=== PATIENT | female | born 1975 | race Caucasian/White ===

== ENCOUNTER → 2017-12-01 | Outpatient (CLI) | payer BC ==
--- NOTE | 2017-12-05 09:42 | MM ---
Reason for exam: screening (asymptomatic). Last mammogram was performed 4 years and 8 months ago. History: Took hormonal contraceptives for 6 years. Physical Findings: A clinical breast exam by your physician is recommended on an annual basis and results should be correlated with mammographic findings. MG 3D Screening Mammo W/Cad Bilateral CC and MLO view(s) were taken. Prior study comparison: March 29, 2013, bilateral digital screening mammo w/CAD. There are scattered fibroglandular densities. Finding: There is a lobular, equal, indistinct mass in the upper quadrant, middle position of the left breast MLO view. New finding since March 29, 2013. ASSESSMENT: Incomplete: need additional imaging evaluation, BI-RAD 0 RECOMMENDATION: Special view mammogram of the left breast. If lesion persists on supplemental views, image directed ultrasound is recommended. [facility] will attempt to contact patient to return for supplemental views and ultrasound if indicated.
== END | disposition home or self-care (01) ==
LOC: RADMAMWWP 12:38
PROVIDERS: ATTEND Obstetrics & Gynecology
DX: Z12.31 Encounter for screening mammogram for malignant neoplasm of breast (principal)
CPT/HCPCS: 77063; 77067

== ENCOUNTER → 2017-12-08 | Outpatient (CLI) | payer BC ==
--- NOTE | 2017-12-11 07:39 | MM ---
Reason for exam: additional evaluation requested from abnormal screening. Last mammogram was performed less than 1 month ago. History: Took hormonal contraceptives for 6 years. Physical Findings: Nurse did not find any significant physical abnormalities on exam. MG 3D Work Up W/Cad LT ML and spot compression MLO view(s) were taken of the left breast. Prior study comparison: December 01, 2017, bilateral MG 3d screening mammo w/cad. There are scattered fibroglandular densities. The superior asymmetry disperses on additional views. These results were verbally communicated with the patient and result sheet given to the patient on 12/08/17. ASSESSMENT: Negative, BI-RAD 1 RECOMMENDATION: Return to routine screening mammogram schedule for both breasts.
== END | disposition home or self-care (01) ==
LOC: RADMAMWWP 13:34
PROVIDERS: ATTEND Obstetrics & Gynecology
DX: R92.8 Other abnormal and inconclusive findings on diagnostic imaging of breast (principal)
CPT/HCPCS: 77065; G0279

== ENCOUNTER → 2019-01-11 | Outpatient (CLI) | payer BC ==
--- NOTE | 2019-01-15 08:35 | MM ---
Reason for exam: screening (asymptomatic). Last mammogram was performed 1 year and 1 month ago. History: Took hormonal contraceptives for 6 years. Physical Findings: A clinical breast exam by your physician is recommended on an annual basis and results should be correlated with mammographic findings. MG 3D Screening Mammo W/Cad Bilateral CC and MLO view(s) were taken. Prior study comparison: December 08, 2017, left breast MG 3d work up w/cad LT. December 01, 2017, bilateral MG 3d screening mammo w/cad. There are scattered fibroglandular densities. No significant changes when compared with prior studies. ASSESSMENT: Benign, BI-RAD 2 RECOMMENDATION: Routine screening mammogram of both breasts in 1 year.
== END | disposition home or self-care (01) ==
LOC: RADMAMWWP 09:10
PROVIDERS: ATTEND Obstetrics & Gynecology
DX: Z12.31 Encounter for screening mammogram for malignant neoplasm of breast (principal)
CPT/HCPCS: 77063; 77067

== ENCOUNTER 2019-07-05 09:50 | Day surgery (SDC) | payer BC ==
[2019-07-03 18:29] VITALS: BMI 30.7
[~2019-07-05 09:50] MED LIST: LACTATED RINGERS 1,000 ML IV SCH
[2019-07-05 10:09] VITALS: RESP 16; TEMP 98.9
[2019-07-05] MEDS ORDERED: LIDOCAINE 1% 20 ML VIAL (10MG/ML) FOR IV START INTRADERMA ONE (10:30)
[2019-07-05] MEDS ORDERED: PROPOFOL 10 MG/ML 20 ML VIAL IV ONE (10:32)
[2019-07-05] MEDS ORDERED: MIDAZOLAM 2 MG/2 ML VIAL ONE (10:32)
--- NOTE | 2019-07-05 10:35 | P.GSHP ---
History of Present Illness H&P Date: 07/05/19 Chief Complaint: GERD This a 44-year-old female who presents today for EGD. Patient had complaints of GERD. Past Medical History Past Medical History: GERD/Reflux, Hyperlipidemia, Hypertension Additional Past Medical History / Comment(s): FATHER HAS MORGAN'S ESOPHAGUS, MOTHER HAS HIATAL HERNIA. ALLERGIES. History of Any Multi-Drug Resistant Organisms: None Reported Past Surgical History: Cholecystectomy Additional Past Surgical History / Comment(s): INFERTILITY PROC. COLONOSCOPY Past Anesthesia/Blood Transfusion Reactions: No Reported Reaction Smoking Status: Never smoker - Past Family History Father Family Medical History: Cancer Additional Family Medical History / Comment(s): KIDNEY CA. MORGAN'S ESOPHAGUS W/ DYSPLASIA Medications and Allergies Home Medications Medication Instructions Recorded Confirmed Type Atorvastatin Calcium [Lipitor] 20 mg PO MOWEFR 05/03/15 07/05/19 History Acetaminophen [Tylenol Extra 500 - 1,000 mg PO Q6H PRN 07/03/19 07/05/19 History Strength] Fluticasone Nasal [place] [Flonase 1 - 2 spray EA NOSTRIL DAILY PRN 07/03/19 07/05/19 History Nasal [place]] Lisinopril 30 mg PO DAILY 07/03/19 07/05/19 History Loratadine [Claritin] 10 mg PO DAILY PRN 07/03/19 07/05/19 History Pantoprazole Sodium 40 mg PO DAILY 07/03/19 07/05/19 History Allergies Allergy/AdvReac Type Severity Reaction Status Date / Time amoxicillin trihydrate Allergy Rash/Hives Verified 07/05/19 10:11 [From Augmentin] potassium clavulanate Allergy Rash/Hives Verified 07/05/19 10:11 [From Augmentin] Surgical - Exam Vital Signs Temp Pulse Resp BP Pulse Ox 98.9 F 86 16 149/95 96 07/05/19 10:08 07/05/19 10:08 07/05/19 10:08 07/05/19 10:08 07/05/19 10:08 - General well developed, well nourished, no distress - Eyes PERRL - ENT normal pinna - Neck no masses - Respiratory normal expansion - Cardiovascular Rhythm: regular - Abdomen Abdomen: soft, non tender Assessment and Plan Assessment: GERD. We'll perform EGD.
--- NOTE | 2019-07-05 10:45 | P.OP ---
Date of Procedure: 07/05/19 Preoperative Diagnosis: GERD Postoperative Diagnosis: Mild antral gastritis Small sliding hiatal hernia Minimal esophagitis Procedure(s) Performed: EGD Anesthesia: MAC Surgeon: Hossein Juarez Pathology: other (Antral, esophagus) Condition: stable Disposition: PACU Description of Procedure: The patient's placed on the endoscopy table in the lateral position. She received IV sedation. The gastroscope placed oropharynx passed in the esophagus and into the stomach. Scope was then placed through the pylorus. The first and second portion of duodenum appeared normal. Scope was then brought back the antrum this. Mildly inflamed. A biopsy was performed. The scope was unretroflexed and remainder of the stomach appeared normal. There is a very small sliding hiatal hernia. GE junction was at 40 cm. The distal esophagus appeared minimally inflamed and a random biopsies performed. The proximal esophagus appeared normal. Scope was withdrawn for patient.
[2019-07-05 10:55] VITALS: BP 117/83; PULSE 78
== END 2019-07-05 11:16 | disposition home or self-care (01) ==
LOC: ORWHC2ENDO 09:50
PROVIDERS: ATTEND Surgery
DX: K44.9 Diaphragmatic hernia without obstruction or gangrene (principal); K29.50 Unspecified chronic gastritis without bleeding; K31.89 Other diseases of stomach and duodenum; K21.0 Gastro-esophageal reflux disease with esophagitis; E78.5 Hyperlipidemia, unspecified; I10 Essential (primary) hypertension; Z83.79 Family history of other diseases of the digestive system; Z90.49 Acquired absence of other specified parts of digestive tract; Z80.51 Family history of malignant neoplasm of kidney; Z79.899 Other long term (current) drug therapy; Z88.0 Allergy status to penicillin
CPT/HCPCS: 81025; 88305; 43239; J2250; J2704

== ENCOUNTER → 2020-05-06 | Outpatient (CLI) | payer BC ==
--- NOTE | 2020-05-07 13:16 | MM ---
Reason for exam: screening (asymptomatic). Last mammogram was performed 1 year and 4 months ago. History: Patient is nulliparous. Took hormonal contraceptives for 6 years. Physical Findings: A clinical breast exam by your physician is recommended on an annual basis and results should be correlated with mammographic findings. MG 3D Screening Mammo W/Cad Bilateral CC and MLO view(s) were taken. Prior study comparison: January 11, 2019, bilateral MG 3d screening mammo w/cad. December 08, 2017, left breast MG 3d work up w/cad LT. There are scattered fibroglandular densities. No significant changes when compared with prior studies. ASSESSMENT: Negative, BI-RAD 1 RECOMMENDATION: Routine screening mammogram of both breasts in 1 year.
== END | disposition home or self-care (01) ==
LOC: RADMAMWWP 07:29
PROVIDERS: ATTEND Obstetrics & Gynecology
DX: Z12.31 Encounter for screening mammogram for malignant neoplasm of breast (principal)
CPT/HCPCS: 77063; 77067

== ENCOUNTER → 2021-10-21 | Outpatient (CLI) | payer BC ==
[2021-10-21 10:48] LABS: HGB 13.3 gm/dL (11.4-16.0); MCH 29.2 pg (25.0-35.0); MCHC 32.4 g/dL (31.0-37.0); MCV 90.2 fL (80.0-100.0); Mean Platelet Volume 7.5; Platelet Count 304 k/uL (150-450); RBC 4.54 m/uL (3.80-5.40); WBC 7.4 k/uL (3.8-10.6)
[2021-10-21 11:03] LABS: ALT 27 U/L (4-34); AST 22 U/L (14-36); African American GFR (CKD) >90 (>60 ml/min/1.73 sqM); Albumin 4.1 g/dL (3.5-5.0); Albumin/Globulin Ratio 1.3; Alkaline Phosphatase 95 U/L (38-126); Anion Gap 9 mmol/L; Blood Urea Nitrogen 15 mg/dL (7-17); Calcium 9.3 mg/dL (8.4-10.2); Carbon Dioxide 24 mmol/L (22-30); Chloride 105 mmol/L (98-107); Globulin 3.1 g/dL; Glucose 97 mg/dL (74-99); Non-African American GFR(CKD) >90 (>60 ml/min/1.73 sqM); Potassium 4.1 mmol/L (3.5-5.1); Sodium 138 mmol/L (137-145); Total Bilirubin 0.3 mg/dL (0.2-1.3); Total Protein 7.2 g/dL (6.3-8.2)
[2021-10-21 11:19] LABS: T4, Free (Free Thyroxine) 1.51 ng/dL (0.78-2.19)
[2021-10-21 21:50] LABS: Chol/HDL Ratio 4.96 Ratio; LDL Cholesterol,Calculated 109.7 mg/dL (0.0-131.0)
--- NOTE | 2021-10-25 12:09 | MM ---
Reason for exam: screening (asymptomatic). Last mammogram was performed 1 year and 5 months ago. History: Patient has history of other cancer at age 45 and is nulliparous. Took hormonal contraceptives for 6 years. Physical Findings: A clinical breast exam by your physician is recommended on an annual basis and results should be correlated with mammographic findings. MG 3D Screening Mammo W/Cad Bilateral CC and MLO view(s) were taken. Prior study comparison: May 06, 2020, bilateral MG 3d screening mammo w/cad. January 11, 2019, bilateral MG 3d screening mammo w/cad. There are scattered fibroglandular densities. No significant changes when compared with prior studies. ASSESSMENT: Negative, BI-RAD 1 RECOMMENDATION: Routine screening mammogram of both breasts in 1 year.
== END | disposition home or self-care (01) ==
LOC: RADMAMWWP 09:34
PROVIDERS: ATTEND Obstetrics & Gynecology
DX: Z12.31 Encounter for screening mammogram for malignant neoplasm of breast (principal); Z13.220 Encounter for screening for lipoid disorders; Z13.29 Encounter for screening for other suspected endocrine disorder
CPT/HCPCS: 36415; 77063; 77067; 80053; 80061; 84439; 84443; 84479; 85027

== ENCOUNTER 2022-04-07 06:58 | Observation (INO) | payer BC ==
--- NOTE | 2022-04-07 07:43 | ED ---
General Adult HPI - General Chief complaint: Chest Pain Stated complaint: Chest Pain Time Seen by Provider: 04/07/22 07:08 Source: patient, RN notes reviewed, old records reviewed Mode of arrival: ambulatory Limitations: no limitations - History of Present Illness Initial comments: 46-year-old female presenting for evaluation of chest pain. She's had i ntermittent chest pain for about one week. Yesterday she developed left arm pain associated with her left upper chest pain and parasternal chest pain. She had no associated diaphoresis or vomiting. Mild dyspnea. No lower extremity pain or swelling. She has history of hypertension and hyperlipidemia. She is a nonsmoker. - Related Data Home Medications Medication Instructions Recorded Confirmed Atorvastatin Calcium [Lipitor] 20 mg PO MOWEFR 05/03/15 04/07/22 Loratadine [Claritin] 10 mg PO DAILY 07/03/19 04/07/22 Pantoprazole Sodium 40 mg PO DAILY 07/03/19 04/07/22 amLODIPine BESYLATE/BENAZEPRIL 1 cap PO DAILY 04/07/22 04/07/22 [amLODIPine BESYLATE/BENAZEPRIL 5-40 mg] Allergies Allergy/AdvReac Type Severity Reaction Status Date / Time amoxicillin trihydrate Allergy Rash/Hives Verified 04/07/22 07:54 [From Augmentin] potassium clavulanate Allergy Rash/Hives Verified 04/07/22 07:54 [From Augmentin] Review of Systems ROS Statement: Those systems with pertinent positive or pertinent negative responses have been documented in the HPI. ROS Other: All systems not noted in ROS Statement are negative. Past Medical History Past Medical History: GERD/Reflux, Hyperlipidemia, Hypertension Additional Past Medical History / Comment(s): FATHER HAS MORGAN'S ESOPHAGUS, MOTHER HAS HIATAL HERNIA. ALLERGIES. History of Any Multi-Drug Resistant Organisms: None Reported Past Surgical History: Cholecystectomy Additional Past Surgical History / Comment(s): INFERTILITY PROC. COLONOSCOPY Past Anesthesia/Blood Transfusion Reactions: No Reported Reaction Past Psychological History: No Psychological Hx Reported Smoking Status: Never smoker Past Alcohol Use History: Rare Past Drug Use History: None Reported - Past Family History Father Family Medical History: Cancer Additional Family Medical History / Comment(s): KIDNEY CA. MORGAN'S ESOPHAGUS W/ DYSPLASIA General Exam Limitations: no limitations General appearance: alert, in no apparent distress Head exam: Present: atraumatic, normocephalic Eye exam: Present: normal appearance, PERRL ENT exam: Present: normal exam Neck exam: Present: normal inspection. Absent: tenderness, meningismus Respiratory exam: Present: normal lung sounds bilaterally. Absent: respiratory distress, wheezes Cardiovascular Exam: Present: regular rate, normal rhythm GI/Abdominal exam: Present: soft. Absent: distended, tenderness, guarding Extremities exam: Present: normal inspection, normal capillary refill. Absent: pedal edema, calf tenderness Back exam: Present: normal inspection Neurological exam: Present: alert, oriented X3, CN II-XII intact. Absent: motor sensory deficit Psychiatric exam: Present: normal affect, normal mood Skin exam: Present: warm, dry, intact. Absent: cyanosis, diaphoretic Course Vital Signs 04/07/22 04/07/22 04/07/22 07:01 08:30 09:00 Temperature 97.6 F Pulse Rate 93 77 75 Respiratory 20 16 Rate Blood Pressure 159/88 122/84 115/78 O2 Sat by Pulse 99 96 Oximetry EKG Findings - EKG Comments: EKG Findings:: Sinus rhythm rate of 84 DE interval 172, QRS duration 88, QTC [address] segment elevation. Subtle T-wave abnormality in V3. Medical Decision Making - Medical Decision Making 46-year-old female with intermittent chest pain, worsening over the past 24 hours with left-sided arm pain associated. She has history of hypertension and hyperlipidemia. She is a nonsmoker, nondiabetic. She has an EKG showing some T-wave inversion in the precordial leads. No ST segment elevation. Chest x-ray is clear. Normal laboratory testing in the emergency department. She will be kept in observation for serial cardiac enzymes, telemetry, cardiology consultation. Case discussed with the admitting physician. - Lab Data Result diagrams: 04/07/22 07:27 04/07/22 07:27 Lab Results 04/07/22 04/07/22 04/07/22 Range/Units 07:27 07: 07:27 WBC 7.3 (3.8-10.6) k/uL RBC 4.71 (3.80-5.40) m/uL Hgb 13.5 (11.4-16.0) gm/dL Hct 41.9 (34.0-46.0) % MCV 89.0 (80.0-100.0) fL MCH 28.6 (25.0-35.0) pg MCHC 32.1 (31.0-37.0) g/dL RDW 13.0 (11.5-15.5) % Plt Count 303 (150-450) k/uL MPV 7.7 Neutrophils % 68 % Lymphocytes % 23 % Monocytes % 6 % Eosinophils % 2 % Basophils % 1 % Neutrophils # 4.9 (1.3-7.7) k/uL Lymphocytes # 1.6 (1.0-4.8) k/uL Monocytes # 0.4 (0-1.0) k/uL Eosinophils # 0.2 (0-0.7) k/uL Basophils # 0.1 (0-0.2) k/uL PT 10.2 (9.0-12.0) sec INR 0.9 (<1.2) APTT 24.0 (22.0-30.0) sec Sodium 138 (137-145) mmol/L Potassium 4.3 (3.5-5.1) mmol/L Chloride 105 (98-107) mmol/L Carbon Dioxide 23 (22-30) mmol/L Anion Gap 10 mmol/L BUN 16 (7-17) mg/dL Creatinine 0.63 (0.52-1.04) mg/dL Est GFR (CKD-EPI)AfAm >90 (>60 ml/min/1.73 sqM) Est GFR (CKD-EPI)NonAf >90 (>60 ml/min/1.73 sqM) Glucose 109 H (74-99) mg/dL Calcium 9.1 (8.4-10.2) mg/dL Magnesium 2.2 (1.6-2.3) mg/dL Total Bilirubin 0.5 (0.2-1.3) mg/dL AST 25 (14-36) U/L ALT 25 (4-34) U/L Alkaline Phosphatase 92 (38-126) U/L Troponin I (0.000-0.034) ng/mL NT-Pro-B Natriuret Pep pg/mL Total Protein 7.4 (6.3-8.2) g/dL Albumin 4.5 (3.5-5.0) g/dL 04/07/22 04/07/22 Range/Units 07:27 07:27 WBC (3.8-10.6) k/uL RBC (3.80-5.40) m/uL Hgb (11.4-16.0) gm/dL Hct (34.0-46.0) % MCV (80.0-100.0) fL MCH (25.0-35.0) pg MCHC (31.0-37.0) g/dL RDW (11.5-15.5) % Plt Count (150-450) k/uL MPV Neutrophils % % Lymphocytes % % Monocytes % % Eosinophils % % Basophils % % Neutrophils # (1.3-7.7) k/uL Lymphocytes # (1.0-4.8) k/uL Monocytes # (0-1.0) k/uL Eosinophils # (0-0.7) k/uL Basophils # (0-0.2) k/uL PT (9.0-12.0) sec INR (<1.2) APTT (22.0-30.0) sec Sodium (137-145) mmol/L Potassium (3.5-5.1) mmol/L Chloride (98-107) mmol/L Carbon Dioxide (22-30) mmol/L Anion Gap mmol/L BUN (7-17) mg/dL Creatinine (0.52-1.04) mg/dL Est GFR (CKD-EPI)AfAm (>60 ml/min/1.73 sqM) Est GFR (CKD-EPI)NonAf (>60 ml/min/1.73 sqM) Glucose (74-99) mg/dL Calcium (8.4-10.2) mg/dL Magnesium (1.6-2.3) mg/dL Total Bilirubin (0.2-1.3) mg/dL AST (14-36) U/L ALT (4-34) U/L Alkaline Phosphatase (38-126) U/L Troponin I <0.012 (0.000-0.034) ng/mL NT-Pro-B Natriuret Pep 42 pg/mL Total Protein (6.3-8.2) g/dL Albumin (3.5-5.0) g/dL Disposition Clinical Impression: Chest pain Disposition: ADMITTED IP TO THIS HOSP Condition: Stable Is patient prescribed a controlled substance at d/c from ED?: No Referrals: Jenna Sánchez DO [Primary Care Provider] - 1-2 days Time of Disposition: 09:34
--- NOTE | 2022-04-07 08:09 | XR ---
EXAMINATION TYPE: XR chest 2V DATE OF EXAM: 04/07/2022 COMPARISON: NONE HISTORY: Chest pain TECHNIQUE: Frontal and lateral views of the chest are obtained. FINDINGS: There is no focal air space opacity, pleural effusion, or pneumothorax seen. The cardiac silhouette size is within normal limits. The osseous structures are intact. There are overlying kay ds. Surgical clips are present in the right upper quadrant. IMPRESSION: No acute cardiopulmonary process.
[2022-04-07 08:12] LABS: Basophils # (A) 0.1 k/uL (0-0.2); Basophils % (A) 1 %; Eosinophils # (A) 0.2 k/uL (0-0.7); Eosinophils % (A) 2 %; HCT 41.9 % (34.0-46.0); HGB 13.5 gm/dL (11.4-16.0); Lymphocytes # (A) 1.6 k/uL (1.0-4.8); Lymphocytes % (A) 23 %; MCH 28.6 pg (25.0-35.0); MCHC 32.1 g/dL (31.0-37.0); Mean Platelet Volume 7.7; Monocytes # (A) 0.4 k/uL (0-1.0); Monocytes % (A) 6 %; Neutrophils # (A) 4.9 k/uL (1.3-7.7); Neutrophils % (A) 68 %; Platelet Count 303 k/uL (150-450); RBC 4.71 m/uL (3.80-5.40); WBC 7.3 k/uL (3.8-10.6)
[2022-04-07 08:21] LABS: INR 0.9 (<1.2); Prothrombin Time 10.2 sec (9.0-12.0)
[2022-04-07 08:32] LABS: ALT 25 U/L (4-34); AST 25 U/L (14-36); African American GFR (CKD) >90 (>60 ml/min/1.73 sqM); Albumin 4.5 g/dL (3.5-5.0); Alkaline Phosphatase 92 U/L (38-126); Anion Gap 10 mmol/L; Blood Urea Nitrogen 16 mg/dL (7-17); Calcium 9.1 mg/dL (8.4-10.2); Carbon Dioxide 23 mmol/L (22-30); Chloride 105 mmol/L (98-107); Glucose 109 mg/dL (74-99); Magnesium 2.2 mg/dL (1.6-2.3); Non-African American GFR(CKD) >90 (>60 ml/min/1.73 sqM); Potassium 4.3 mmol/L (3.5-5.1); Sodium 138 mmol/L (137-145); Total Bilirubin 0.5 mg/dL (0.2-1.3); Total Protein 7.4 g/dL (6.3-8.2)
[2022-04-07] MEDS ORDERED: ASPIRIN 325 MG TAB PO STA (09:30)
[2022-04-07] MEDS ORDERED: ACETAMINOPHEN TAB 325 MG TAB PO PRN (09:31)
[2022-04-07] MEDS ORDERED: NALOXONE 0.4 MG/ML 1 ML VIAL IV PRN (09:31)
[2022-04-07 11:17] VITALS: RESP 20
[2022-04-07] MEDS ORDERED: NAPROXEN 250 MG TAB PO STA (12:16)
[2022-04-07 15:03] VITALS: BP 106/63; PULSE 56; TEMP 97.9
--- NOTE | 2022-04-07 15:54 | P.HPIM ---
History of Present Illness H&P Date: 04/07/22 Chief Complaint: Chest pain, hypertension History and Physical and Discharge summary This is a 46-year-old female with past medical history gastroesophageal reflux disease, hypertension, hyperlipidemia, multiple other medical issues presented to the ER with left upper chest pain radiating into her left arm, fluctuating over the last week. Denies syncope. Denies nausea vomiting diarrhea or abdominal pain. Denies lightheadedness dizziness or focal deficits. On admission, hypertensive with blood pressure 159/88, heart rate 93, returning 20 maintaining O2 sats of 99 on room air. Reports compliant with medication regime.Troponin is negative 2. EKG was sinus rhythm with nonspecific T-wave abnormalities .Hematology, coagulation, chemistry panels within normal limits. Cardiology consulted. Currently denies chest pain, palpitations or shortness of breath. Review of Systems ROS Statement: Those systems with pertinent positive or pertinent negative responses have been documented in the HPI. ROS Other: All systems not noted in ROS Statement are negative. Past Medical History Past Medical History: GERD/Reflux, Hyperlipidemia, Hypertension Additional Past Medical History / Comment(s): FATHER HAS MORGAN'S ESOPHAGUS, MOTHER HAS HIATAL HERNIA. ALLERGIES. History of Any Multi-Drug Resistant Organisms: None Reported Past Surgical History: Cholecystectomy Additional Past Surgical History / Comment(s): INFERTILITY PROC. COLONOSCOPY Past Anesthesia/Blood Transfusion Reactions: No Reported Reaction Past Psychological History: No Psychological Hx Reported Smoking Status: Never smoker Past Alcohol Use History: Rare Past Drug Use History: None Reported - Past Family History Father Family Medical History: Cancer Additional Family Medical History / Comment(s): KIDNEY CA. MORGAN'S ESOPHAGUS W/ DYSPLASIA Medications and Allergies Home Medications Medication Instructions Recorded Confirmed Type Atorvastatin Calcium [Lipitor] 20 mg PO MOWEFR 05/03/15 04/07/22 History Loratadine [Claritin] 10 mg PO DAILY 07/03/19 04/07/22 History Pantoprazole Sodium 40 mg PO DAILY 07/03/19 04/07/22 History amLODIPine BESYLATE/BENAZEPRIL 1 cap PO DAILY 04/07/22 04/07/22 History [amLODIPine BESYLATE/BENAZEPRIL 5-40 mg] Allergies Allergy/AdvReac Type Severity Reaction Status Date / Time amoxicillin trihydrate Allergy Rash/Hives Verified 04/07/22 07:54 [From Augmentin] potassium clavulanate Allergy Rash/Hives Verified 04/07/22 07:54 [From Augmentin] Physical Exam Vitals: Vital Signs Temp Pulse Pulse Resp BP BP Pulse Ox 04/07/22 15:00 97.9 F 56 L 20 106/63 100 04/07/22 11:16 98.1 F 78 20 125/77 96 04/07/22 09:56 84 16 126/87 98 04/07/22 09:00 75 16 115/78 96 04/07/22 08:30 77 122/84 04/07/22 07:01 97.6 F 93 20 159/88 99 Intake and Output 04/07/22 04/07/22 04/07/22 06:59 14:59 22:59 Intake Total 118 Balance 118 Intake: Oral 118 Other: Weight 95.254 kg PHYSICAL EXAM: VITAL SIGNS: [As above] GENERAL: Sitting up in bed, no acute distress HEENT: Conjunctivae normal. eyes normal. NECK: No JVD. No thyroid enlargement. No LNs CARDIOVASCULAR: S1, S2 regular.. No murmur RESPIRATION: Breath sounds diminished in the bases. No rhonchi or crackles. No bronchial breathing. ABDOMEN: Soft, nontender . No guarding. no masses palpable. No ascites, No hepatosplenomegaly.Bowel sounds heard. LEGS: No edema. no swelling PSYCHIATRY: Alert and oriented X3, mood and affect normal. NERVOUS SYSTEM: Cranial N 2-12 grossly normal. No focal deficits. Strength and sensation grossly intact.. Skin: Warm and dry, no rash. Results CBC & Chem 7: 04/07/22 07:27 04/07/22 07:27 Labs: Abnormal Lab Results - Last 24 Hours (Table) 04/07/22 Range/Units 07:27 Glucose 109 H (74-99) mg/dL Assessment and Plan Assessment: Chest pain, suspect related to hypertension Hypertensive urgency in a patient with history of hypertension Obesity, BMI 33.9 Hyperlipidemia Gastroesophageal reflux disease Plan: Continue on current medication regime ,monitoring and symptomatic treatment. Patient will be discharged home in a stable condition with guarded prognosis, pending cardiology evaluation, recommendations, final DC isa mmendations and clearance. Discharge Medication List Atorvastatin Calcium [Lipitor] 20 mg PO MOWEFR 05/03/15 [History] Loratadine [Claritin] 10 mg PO DAILY 07/03/19 [History] Pantoprazole Sodium 40 mg PO DAILY 07/03/19 [History] amLODIPine BESYLATE/BENAZEPRIL [amLODIPine BESYLATE/BENAZEPRIL 5-40 mg] 1 cap PO DAILY 04/07/22 [History] The impression and plan of care has been dictated as directed. : I performed a history and examination of this patient, discussed the same with the dictator. I agree with the dictator's note ,documented as a scribe. Any additional findings or plans will be noted.
--- NOTE | 2022-04-07 18:22 | P.CRDCN ---
History of Present Illness History of present illness: - . HPI: [This patient has history of hypertension and hypercholesterolemia and also some gastroesophageal reflux disease. 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 She has been experiencing some discomfort in the left anterior chest quality is very atypical musculoskeletal. A few days ago she did do some yard work. She then noticed discomfort in the scapular area and left shoulder felt concerned and came to the hospital. Chest pain is almost reproducible by pushing her left arm against resistance. Her blood pressure control is good she is resting comfortably without symptoms. Her initial troponin is unremarkable EKG revealed sinus mechanism with very minor nonspecific ST-T changes. I talked to the patient and her and explained to them that if the troponins are negative she can be discharged and I will see her in the office tomorrow and consider performing a stress test. For her pain and she should take some nonsteroidal anti-inflammatory agents like Aleve. Patient is fairly active does not have any exertional symptoms. She has not had a recent stress test. Her BP control is optimal.]. RELEVANT PAST MEDICAL HISTORY: [Hypertension and hypercholesterolemia]. MEDICATIONS: [Amlodipine, atorvastatin, Nexium] ALLERGIES: [Amoxicillin]. REVIEW OF SYSTEMS: [No hematemesis melena no genitourinary symptoms fever with chills or cough with expectoration. Chest pain seemed to occur after doing some physical work a few days ago. Quality of pain is atypical]. PHYSICIAL EXAM: [Vital signs are normal. There is no JVD or carotid bruit. Heart exam is normal S1-S2 heard normally no rub murmur or gallops lungs are clear abdomen is soft nontender lower extremities reveal normal pulses no edema central nervous system is normal. EKG revealed sinus mechanism with minor nonspecific ST-T changes]. IMPRESSION: 1. [ Atypical chest pain]. 2. Benign hypertension. 3. Hypercholesterolemia. 4. []. 5. []. RECOMMENDATIONS: [I am recommending that she has 2 options 1 is to stay here in the hospital if the troponins are negative proceed with a stress test in the morning and then she can be discharged. The other option is that she has no further symptoms in the additional troponins are normal she can go home and I will see her in the office tomorrow. She will be on a nonsteroidal anti- inflammatory agents. If she has any recurrence of pain I will be notified. Patient and her developing to go on an follow-through as advised about. Physical exam otherwise is unremarkable. We will also do an echocardiogram tomorrow if she stays otherwise I can do it as an outpatient]. Past Medical History Past Medical History: GERD/Reflux, Hyperlipidemia, Hypertension Additional Past Medical History / Comment(s): FATHER HAS MORGAN'S ESOPHAGUS, MOTHER HAS HIATAL HERNIA. ALLERGIES. History of Any Multi-Drug Resistant Organisms: None Reported Past Surgical History: Cholecystectomy Additional Past Surgical History / Comment(s): INFERTILITY PROC. COLONOSCOPY Past Anesthesia/Blood Transfusion Reactions: No Reported Reaction Past Psychological History: No Psychological Hx Reported Smoking Status: Never smoker Past Alcohol Use History: Rare Past Drug Use History: None Reported - Past Family History Father Family Medical History: Cancer Additional Family Medical History / Comment(s): KIDNEY CA. MORGAN'S ESOPHAGUS W/ DYSPLASIA Medications and Allergies Home Medications Medication Instructions Recorded Confirmed Type Atorvastatin Calcium [Lipitor] 20 mg PO MOWEFR 05/03/15 04/07/22 History Loratadine [Claritin] 10 mg PO DAILY 07/03/19 04/07/22 History Pantoprazole Sodium 40 mg PO DAILY 07/03/19 04/07/22 History amLODIPine BESYLATE/BENAZEPRIL 1 cap PO DAILY 04/07/22 04/07/22 History [amLODIPine BESYLATE/BENAZEPRIL 5-40 mg] Allergies Allergy/AdvReac Type Severity Reaction Status Date / Time amoxicillin trihydrate Allergy Rash/Hives Verified 04/07/22 07:54 [From Augmentin] potassium clavulanate Allergy Rash/Hives Verified 04/07/22 07:54 [From Augmentin] Physical Exam Vitals: Vital Signs Temp Pulse Pulse Resp BP BP Pulse Ox 04/07/22 15:00 97.9 F 56 L 20 106/63 100 04/07/22 11:16 98.1 F 78 20 125/77 96 04/07/22 09:56 84 16 126/87 98 04/07/22 09:00 75 16 115/78 96 04/07/22 08:30 77 122/84 04/07/22 07:01 97.6 F 93 20 159/88 99 Intake and Output 04/07/22 04/07/22 04/07/22 06:59 14:59 22:59 Intake Total 118 Balance 118 Intake: Oral 118 Other: # Voids 4 Weight 95.254 kg Results 04/07/22 07:27 04/07/22 07:27 Cardiac Enzymes 04/07/22 04/07/22 04/07/22 Range/Units 07:27 07:27 12:18 AST 25 (14-36) U/L Troponin I <0.012 <0.012 (0.000-0.034) ng/mL 04/07/22 Range/Units 16:25 AST (14-36) U/L Troponin I <0.012 (0.000-0.034) ng/mL Coagulation 04/07/22 Range/Units 07:27 PT 10.2 (9.0-12.0) sec APTT 24.0 (22.0-30.0) sec CBC 04/07/22 Range/Units 07:27 WBC 7.3 (3.8-10.6) k/uL RBC 4.71 (3.80-5.40) m/uL Hgb 13.5 (11.4-16.0) gm/dL Hct 41.9 (34.0-46.0) % Plt Count 303 (150-450) k/uL Comprehensive Metabolic Panel 04/07/22 Range/Units 07:27 Sodium 138 (137-145) mmol/L Potassium 4.3 (3.5-5.1) mmol/L Chloride 105 (98-107) mmol/L Carbon Dioxide 23 (22-30) mmol/L BUN 16 (7-17) mg/dL Creatinine 0.63 (0.52-1.04) mg/dL Glucose 109 H (74-99) mg/dL Calcium 9.1 (8.4-10.2) mg/dL AST 25 (14-36) U/L ALT 25 (4-34) U/L Alkaline Phosphatase 92 (38-126) U/L Total Protein 7.4 (6.3-8.2) g/dL Albumin 4.5 (3.5-5.0) g/dL Intake and Output 04/07/22 04/07/22 04/07/22 06:59 14:59 22:59 Intake Total 118 Balance 118 Intake: Oral 118 Other: # Voids 4 Weight 95.254 kg Patient Weight 04/08/22 06:59 Weight 95.254 kg 04/07/22 07:27 04/07/22 07:27
== END 2022-04-07 18:00 | disposition home or self-care (01) ==
LOC: EC 06:58 → 6NMEDSUR 09:32
PROVIDERS: ADMIT Family Medicine; ATTEND Family Medicine
DX: R07.89 Other chest pain (principal); I16.0 Hypertensive urgency; I10 Essential (primary) hypertension; E78.5 Hyperlipidemia, unspecified; M79.602 Pain in left arm; E78.00 Pure hypercholesterolemia, unspecified; K21.9 Gastro-esophageal reflux disease without esophagitis; E66.9 Obesity, unspecified; Z68.33 Body mass index [BMI] 33.0-33.9, adult; Z79.899 Other long term (current) drug therapy; Z88.0 Allergy status to penicillin; Z90.49 Acquired absence of other specified parts of digestive tract; Z98.890 Other specified postprocedural states; Z83.79 Family history of other diseases of the digestive system; Z80.51 Family history of malignant neoplasm of kidney
CPT/HCPCS: 99285; 36415; 93005; 83880; 80053; 83735; 84484; 85025; 85610; 85730; 71046; G0378

== ENCOUNTER 2023-06-02 11:27 | Day surgery (SDC) | payer BC ==
[2023-05-30 11:50] VITALS: BMI 33.9
[2023-06-02] MEDS: LACTATED RINGERS 1,000 ML IV SCH ×2 (13:17→14:26)
[2023-06-02 13:26] VITALS: TEMP 973.8
[2023-06-02] MEDS ORDERED: LIDOCAINE 2% INJ 20 MG/ML (2 ML VIAL) ONE (14:27)
[2023-06-02] MEDS ORDERED: PROPOFOL 10 MG/ML 20 ML VIAL IV ONE (14:27)
--- NOTE | 2023-06-02 14:42 | P.PCN ---
Date of Procedure: 06/02/23 Procedure(s) Performed: BRIEF HISTORY: Patient is a 48-year-old pleasant white female scheduled for an elective colonoscopy as a part of screening for colon cancer. PROCEDURE PERFORMED: Colonoscopy. PREOPERATIVE DIAGNOSIS: Screening for colon cancer. IV sedation per Anesthesia. PROCEDURE: After informed consent was obtained, the patient, was brought into the endoscopy unit. IV sedation was administered by Anesthesia under continuous monitoring. Digital rectal examination was normal. Initially the Olympus CF-160 flexible video colonoscope was then inserted in the rectum, gradually advanced into the cecum without any difficulty. Careful examination was performed as the scope was gradually being withdrawn. Ileocecal valve and the appendiceal orifice were visualized and appeared normal. Prep was excellent. Mucosa of the cecum, ascending colon, transverse colon, descending colon, sigmoid colon, and rectum appeared normal. Retroflexion was performed in the rectum and no lesions were seen. Scattered sigmoid diverticulosis The patient tolerated the procedure well. IMPRESSION: Normal-appearing colon from rectum to cecum with no evidence of colorectal . Scattered sigmoid diverticulosis. RECOMMENDATIONS: Findings of this examination were discussed with the patient as well as his family.. She was advised to have a repeat screening colonoscopy in 10 years.
[2023-06-02 15:13] VITALS: BP 117/65; PULSE 74; RESP 18
== END 2023-06-02 15:23 | disposition home or self-care (01) ==
LOC: ORWHC2ENDO 11:27
PROVIDERS: ATTEND Internal Medicine Gastroenterology
DX: Z12.11 Encounter for screening for malignant neoplasm of colon (principal); K57.30 Diverticulosis of large intestine without perforation or abscess without bleeding; I10 Essential (primary) hypertension; E78.5 Hyperlipidemia, unspecified; K21.9 Gastro-esophageal reflux disease without esophagitis; Z79.899 Other long term (current) drug therapy
CPT/HCPCS: 81025; 45378; J2704; J2001

== ENCOUNTER → 2023-12-15 | Outpatient (CLI) | payer BC ==
--- NOTE | 2023-12-18 16:22 | MM ---
Reason for Exam: Screening (asymptomatic). Last screening mammogram was performed 12 month(s) ago. Patient History: Menarche at age 16. Patient has no children. Other cancer, age 45. Patient used Hormonal Contraceptives for 6 years. Last menstrual period: 12/01/2023 Risk Values: Jenna 5 year model risk: 0.9%. NCI Lifetime model risk: 9.5%. Prior Study Comparison: 05/06/2020 Bilateral Screening Mammogram, [facility]. 10/21/2021 Bilateral Screening Mammogram, [facility]. 12/02/2022 Bilateral MG 3D screening mammo w/cad, [facility]. Tissue Density: There are scattered fibroglandular densities. Findings: Analyzed By CAD. The pattern is symmetrical. No significant interval change is evident. No suspicious groups of microcalcifications, spiculated or lobular masses, architectural distortion or other secondary signs of malignancy are mammographically apparent. Overall Assessment: Negative, BI-RAD 1 Management: Screening Mammogram of both breasts in 1 year. A negative mammogram report should not preclude additional follow up of suspicious palpable abnormalities. Patient should continue monthly self breast exam. A clinical breast exam by your physician is recommended on an annual basis and results should be correlated with mammographic findings. Electronically signed and approved by: Chi Reid D.O. Radiologis
== END | disposition home or self-care (01) ==
LOC: RADMAMWWP 15:49
PROVIDERS: ATTEND Family Medicine
DX: Z12.31 Encounter for screening mammogram for malignant neoplasm of breast (principal)
CPT/HCPCS: 77063; 77067

== ENCOUNTER → 2025-03-14 | Outpatient (CLI) | payer BC ==
--- NOTE | 2025-03-14 11:59 | MM ---
Reason for Exam: Screening (asymptomatic). Last mammogram was performed 1 year(s) and 3 month(s) ago. Patient History: Menarche at age 16. Patient has no children. Other cancer, age 45. Patient used Hormonal Contraceptives for 6 years. Last menstrual period: 02/28/2025 Risk Values: Jenna 5 year model risk: 0.9%. NCI Lifetime model risk: 9.3%. Prior Study Comparison: 10/21/2021 Bilateral Screening Mammogram, [facility]. 12/02/2022 Bilateral MG 3D screening mammo w/cad, [facility]. 12/15/2023 Bilateral MG 3D screening mammo w/cad, [facility]. Tissue Density: There are scattered areas of fibroglandular density. Findings: Analyzed By CAD. Right breast: There is no suspicious group of microcalcifications or new suspicious mass. Left breast: There is no suspicious group of microcalcifications or new suspicious mass. Overall Assessment: Negative, BI-RAD 1 Management: Screening Mammogram of both breasts in [address] [facility] will attempt to contact patient to return for supplemental views and ultrasound if indicated. Patient should continue monthly self-breast exams. A clinical breast exam by your physician is recommended on an annual basis. This exam should not preclude additional follow-up of suspicious palpable abnormalities. Note on Jenna scores and lifetime risk: 1. A Jenna score greater than 3% is considered moderate risk. If this is the case, consider specialist referral to assess eligibility for a risk reducing agent. 2. If overall lifetime risk for the development of breast cancer is 20% or higher, the patient may qualify for future screening with alternating mammogram and breast MRI. [facility], , 03/14/2025 11:57 AM. Electronically signed and approved by: Jericho Grigsby DO
== END | disposition home or self-care (01) ==
LOC: RADMAMWWP 09:51
PROVIDERS: ATTEND Family Medicine
DX: Z12.31 Encounter for screening mammogram for malignant neoplasm of breast (principal); R92.323 Mammographic fibroglandular density, bilateral breasts; Z92.0 Personal history of contraception
CPT/HCPCS: 77063; 77067